=== PATIENT | female | born 1950 | race Caucasian/White ===

== ENCOUNTER 2018-01-03 08:35 | Emergency (ER) | payer MEDICARE, OTHER ==
[~2018-01-03] VITALS: Ht 172.7 cm; Wt 74.4 kg
[~2018-01-03 08:35] MED LIST: LEVOTHYROXIN0.125 M1 PO; LORTAB 5 MG/5001 TA1 PO
[2018-01-03] MEDS ORDERED: HYDROCODONE-AP1 EAC6 PO (09:35)
[2018-01-03 10:15] VITALS: BP 106/59
[2018-01-06] MEDS ORDERED: PERCOCET PO (16:04)
== END 2018-01-03 10:17 | disposition home or self-care (01) ==
LOC: M.ERS 08:35
DX: S82.61XA Displaced fracture of lateral malleolus of right fibula, initial encounter for closed fracture (principal); E03.9 Hypothyroidism, unspecified; W01.0XXA Fall on same level from slipping, tripping and stumbling without subsequent striking against object, initial encounter; Y93.89 Activity, other specified; Y92.89 Other specified places as the place of occurrence of the external cause; Y99.8 Other external cause status

== ENCOUNTER → 2018-01-06 | Day surgery (SDC) | payer MEDICARE, OTHER ==
[~2018-01-06] MED LIST changes: +HYDROCODONE-AP1 EAC6 PO; +PERCOCET PO
[2018-01-06 13:39] LABS: HEMATOCRIT 36.8 % (37.0-47.0); HEMOGLOBIN 12.6 gm/dL (12.0-15.0); MCH 33.2 pg (26.0-34.0); MCHC 34.2 g/dL (28.0-37.0); MCV 97.1 fL (80.0-100.0); MPV 7.6 fl. (7.2-11.1); RBC 3.79 mil/uL (4.20-5.00); RDW-CV 13.5 % (10.5-14.5); WBC 7.7 thou/uL (4.0-11.0)
[2018-01-06 13:47] LABS: CALCIUM 8.8 mg/dL (8.5-10.1); CREATININE 0.6 mg/dL (0.6-1.3); POTASSIUM 3.6 mmol/L (3.5-5.1)
[2018-01-06 13:52] LABS: ALBUMIN 3.3 g/dL (3.4-5.0); TOTAL BILIRUBIN 0.5 mg/dL (<0.1-1.0); TOTAL PROTEIN 6.6 g/dL (6.4-8.2)
--- NOTE | 2018-01-06 18:14 | EKG ---
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
--- NOTE | 2018-01-25 10:22 | OP ---
[address] [address] OPERATIVE REPORT Name: VICKYDAE BERNARD Room: [facility]#: [id number] Admission: 01/06/18 Attend Phys: Cameron Camargo II Discharge: Date of : 50 Report #: [id number] THIS REPORT FOR: //name// CC: She Camargo DATE OF SERVICE: 01/06/2018 PREOPERATIVE DIAGNOSIS: Right ankle bimalleolar ankle fracture with displacement. POSTOPERATIVE DIAGNOSIS: Right ankle bimalleolar ankle fracture with displacement. PROCEDURE: Open reduction and internal fixation of right ankle bimalleolar ankle fracture. SURGEON: Cameron Camargo II, DO [employer] OPERATOR: MONALISA Naylor. ANESTHESIA: Per operative record. ESTIMATED BLOOD LOSS: 20 mL ANTIBIOTICS: Per operative record. DRAINS: None. COMPLICATIONS: None. CONDITION OF THE PATIENT: Stable to recovery room. IMPLANTS USED: Willie distal fibular plate and locking screws and then 2 cannulated medial screws. DESCRIPTION OF PROCEDURE: The patient was taken to the operative suite and placed supine on the operating table and given appropriate anesthesia. The patient's right ankle was sterilely prepped and draped. Surgery began by a medial incision over the medial malleolus. The fracture was identified, reduced into near anatomic alignment, held with 2 wires in appropriate fixation. These were then overdrilled to the distal cortex and then secured utilizing 2 cancellous screws to the medial malleolus. This was visualized and seen to be in anatomic alignment in both AP and lateral directions. Attention was then turned to the lateral side. An incision was made over the distal fibula, the skin and subcutaneous tissues. The fractured fibula was then reduced in near [address] [address] OPERATIVE REPORT Name: DAE PERYR Room: [facility].#: [id number] Admission: 01/06/18 Attend Phys: Cameron Camargo II Discharge: Date of : 50 Report #: [id number] anatomic alignment. It was held utilizing the lobster claw forceps. The distal fibular plate was then aligned in appropriate fashion in AP and lateral directions. It was then secured using locking and nonlocking screws with appropriate fashion. The reduction forceps was then removed and final images were taken with the x-ray showing excellent anatomic fixation and good stability of the ankle at the completion of the case. Final irrigation was then performed. The incision was then closed utilizing a Vicryl and nylon stitch. Dermabond dressing was applied as well as a posterior splint. The patient was transported to recovery in stable condition. Counts were correct throughout the procedure. <ELECTRONICALLY SIGNED> By: Cameron Camargo II, DO 01/25/18 1022 0913 1054Robert Shine Camargo II, DO /nt
== END | disposition home or self-care (01) ==
LOC: M.SUR 12:35
PROVIDERS: Orthopaedic Surgery
DX: S82.841A Displaced bimalleolar fracture of right lower leg, initial encounter for closed fracture (principal); Z79.891 Long term (current) use of opiate analgesic; Z86.2 Personal history of diseases of the blood and blood-forming organs and certain disorders involving the immune mechanism; Z87.01 Personal history of pneumonia (recurrent); Z98.890 Other specified postprocedural states; Z82.49 Family history of ischemic heart disease and other diseases of the circulatory system; Z81.8 Family history of other mental and behavioral disorders; Z98.51 Tubal ligation status; X58.XXXA Exposure to other specified factors, initial encounter; Y93.89 Activity, other specified; Y92.89 Other specified places as the place of occurrence of the external cause; Y99.8 Other external cause status